=== PATIENT | male | born 1975 | race Caucasian/White ===

== ENCOUNTER 2016-11-14 22:00 | Emergency (ER) | payer SELFPAY ==
[2016-11-14 22:10] VITALS: BP 124/75
[2016-11-14] MEDS ORDERED: predniSONE 20 MG Tab PO ONE (22:22)
[2016-11-14] MEDS ORDERED: Famotidine 20 MG Tab PO ONE (22:22)
[2016-11-14] MEDS ORDERED: diphenhydrAMINE 50 MG Cap PO ONE (22:22)
--- NOTE | 2016-11-14 22:28 | EDM.PDOC ---
ED HPI GENERAL MEDICAL PROBLEM - General Chief Complaint: Skin Complaint Stated Complaint: LUMP ONM NECK Time Seen by Provider: 11/14/16 22:18 Source of Information: Reports: Patient History Limitations: Reports: No Limitations - History of Present Illness INITIAL COMMENTS - FREE TEXT/NARRATIVE: Patient is a 41-year-old male who presents to the ED complaining of swelling to the posterior aspect of his right ear that extends along the lower border of his hairline. Patient states he went to bed this morning with no concerns. Patient awoke approximately 5:00 pm with a little bump/swelling to the posterior aspect of his ear. There was no pain or itching present. After taking a shower he noticed that the swelling extended along his hairline. Again there has been no pain or itching present. Unclear etiology of complaint. Complaint is associated with the scalp and not the ear itself. There is no drainage or increased warmth noted. He has no history of MRSA. Right Neck Pain Score (Numeric/FACES): 3 - Related Data Allergies Allergy/AdvReac Type Severity Reaction Status Date / Time No Known Allergies Allergy Verified 11/14/16 22:10 Home Meds: Home Meds . [No Known Home Meds] 11/14/16 [History] Past Medical History - Past Health History Medical/Surgical History: Denies Medical/Surgical History Social & Family History - Tobacco Use Smoking Status *Q: Former Smoker Years of Tobacco use: 15 Used Tobacco, but Quit: Yes Month Tobacco Last Used: 2 ED ROS GENERAL - Review of Systems Review Of Systems: ROS reveals no pertinent complaints other than HPI. ED EXAM, SKIN/RASH Exam: See Below Exam Limited By: No Limitations General Appearance: Alert, WD/WN, No Apparent Distress Ears: Normal External Exam, Hearing Grossly Normal Nose: Normal Inspection Throat/Mouth: Normal Voice, No Airway Compromise Head: Atraumatic Neck: Normal Inspection, Supple, Non-Tender. No: Lymphadenopathy (L), Lymphadenopathy (R) Respiratory/Chest: No Respiratory Distress, No Accessory Muscle Use Cardiovascular: Normal Peripheral Pulses, Regular Rate, Rhythm Peripheral Pulses: 2+: Radial (R) Neurological: Alert, Oriented, CN II-XII Intact, Normal Cognition, No Motor/ Sensory Deficits Psychiatric: Normal Affect, Normal Mood Skin: Warm, Dry Location, Skin: Other (Posterior aspect of the right ear: Demarcated swelling that extends to the posterior hairline with what appears to be a hornet/bee sting. No purulent drainage, increased warmth, or pain with palpation.) Course - Vital Signs Last Recorded V/S: Last Vital Signs Temp 97.6 F 11/14/16 22:06 Pulse 68 11/14/16 22:06 Resp 18 11/14/16 22:06 BP 124/75 11/14/16 22:06 Pulse Ox 100 11/14/16 22:06 - Orders/Labs/Meds Meds: Medications Discontinued Medications Generic Name Dose Route Start Last Admin Trade Name Catherine PRN Reason Stop Dose Admin Diphenhydramine HCl 50 mg 11/14/16 22:22 11/14/16 22:31 Benadryl PO 11/14/16 22:23 50 mg ONETIME ONE Administration Famotidine 40 mg 11/14/16 22:22 11/14/16 22:31 Pepcid PO 11/14/16 22:23 40 mg ONETIME ONE Administration Prednisone 40 mg 11/14/16 22:22 11/14/16 22:31 Prednisone PO 11/14/16 22:23 40 mg ONETIME ONE Administration - Re-Assessments/Exams Free Text/Narrative Re-Assessment/Exam: On examination finding is consistent for a bee sting or bug bite. Treatment is Benadryl 50 mg by mouth, Pepcid 40 mg by mouth, and prednisone 40 mg by mouth. We'll discharge patient home with instructions as documented. Prescriptions will be provided. Departure - Departure Time of Disposition: 22:32 Disposition: Home, Self-Care 01 Condition: Good Clinical Impression: Bug bite without infection Qualifiers: Encounter type: initial encounter Qualified Code(s): W57.XXXA - Bitten or stung by nonvenomous insect and other nonvenomous arthropods, initial encounter Bee sting reaction Qualifiers: Encounter type: initial encounter Injury intent: undetermined intent Qualified Code(s): T63.444A - Toxic effect of venom of bees, undetermined, initial encounter - Discharge Information Instructions: Bee, Wasp, or Hornet Sting Referrals: PCP,None [Primary Care Provider] - Forms: ED Department Discharge Additional Instructions: As discussed unclear etiology of current complaint. Appears to be a bug bite or a bee sting. Treatment is Benadryl 50 mg every 6 hours if itching is present as needed. Pepcid 40 mg every day for the next 5 days, and prednisone 40 mg every a.m for 5 days. Refrain from itching or excessive showers. No concerns for infection present this point. Believe the reaction is associated with bug bite/ sting. Return to ED if he developed increased redness, swelling, or purulent drainage.
== END 2016-11-14 22:45 | disposition home or self-care (01) ==
LOC: EDBD 22:00 → JD.ED 22:00
DX: T63.444A Toxic effect of venom of bees, undetermined, initial encounter (principal); Z87.891 Personal history of nicotine dependence
CPT/HCPCS: 99282; A9270; 99283